=== PATIENT | female | born 1960 | race Asian ===

== ENCOUNTER 2018-11-15 17:16 | Emergency (ER) | payer BC ==
[2018-11-15 17:23] VITALS: BP 135/81; PULSE 131; BMI 24.1
[2018-11-15] MEDS ORDERED: SODIUM CHLORIDE 1,000 ML IV STA (17:23)
--- NOTE | 2018-11-15 17:23 | PDOC ---
Rapid Medical Evaluation Chief Complaint: Urinary Problem Time Seen by Provider: 11/15/18 17:21 Medical Evaluation: Allergies Allergy/AdvReac Type Severity Reaction Status Date / Time amoxicillin [Amoxicillin] Allergy Intermediate Verified 08/06/13 18:09 11/15/18 17:21 I have performed a brief in-person evaluation of this patient. The patient presents with a chief complaint of: suprapubic pain Pertinent physical exam findings: HR-136 -CVAT. Lower abd pain I have ordered the following: ekg, urine, labs The patient will proceed to the ED for further evaluation. Discharge Disposition - Diagnosis Lower abdominal pain - Referrals - Patient Instructions - Post Discharge Activity
--- NOTE | 2018-11-15 17:57 | PDOC ---
History of Present Illness - General Chief Complaint: Urinary Problem Stated Complaint: UTI Time Seen by Provider: 11/15/18 17:21 History Source: Patient Exam Limitations: No Limitations - History of Present Illness Initial Comments: 58 yo F PMH, HTN, HLD, diabetes not on insulin, sciatica, p/w "hard pain while urinating". She says that this episode occurred at 1500 today, and she saw that the urine was a pink color. She reports having R lower back pain about a month ago that felt like "gas was stuck there". She took Gas X and this resolved. She felt that same pain around 1500 while urinating but it is not longer present. She has minor twinges of this pain when she turns to lay on either side. She says she has not had any UTIs in the past and has never had any hospitalizations. She denies CP, SOB, abdominal pain, N/V, constipation/diarrhea, fevers/chills. 11/15/18 17:52 Past History - Past Medical History Allergies/Adverse Reactions: Allergies Allergy/AdvReac Type Severity Reaction Status Date / Time amoxicillin [Amoxicillin] Allergy Intermediate Verified 08/06/13 18:09 Home Medications: Ambulatory Orders Amlodipine Besylate [Norvasc -] 5 mg PO ASDIR 08/06/13 Losartan Potassium 50 mg PO ASDIR 08/06/13 Unobtainable Home Med List 0 dose .ROUTE UTDICT 08/06/13 traMADol HCL [Ultram] 50 mg PO Q6H PRN #14 tablet 08/06/13 Sulfamethoxazole/Trimethoprim [Bactrim Ds Tablet] 1 each PO BID #14 tablet 11/15 COPD: No Diabetes: Yes HTN: Yes Hypercholesterolemia: Yes - Suicide/Smoking/Psychosocial Hx Smoking History: Never smoked Hx Alcohol Use: No Drug/Substance Use Hx: No Review of Systems - Review of Systems Able to Perform ROS?: Yes Constitutional: No: Chills, Fever, Weakness HEENTM: No: Eye Pain, Recent change in vision, Double Vision, Ear Pain, Nose Pain, Throat Pain, Difficulty Swallowing Respiratory: No: Cough, Orthopnea, Shortness of Breath Cardiac (ROS): No: Chest Pain, Lightheadedness ABD/GI: No: Constipated, Diarrhea, Difficulty Swallowing, Nausea, Vomiting : Yes: Dysuria ("hard pain"), Flank Pain (intermittent on R side, not currently feeling), Hematuria. No: Discharge, Incontinence, Urgency Neurological: No: Headache, Numbness *Physical Exam - Vital Signs Last Vital Signs Temp Pulse Resp BP Pulse Ox 99.1 F 131 H 16 135/81 96 11/15/18 17:19 11/15/18 17:19 11/15/18 17:19 11/15/18 17:19 11/15/18 17:19 - Physical Exam General Appearance: Yes: Nourished, Appropriately Dressed. No: Apparent Distress HEENT: positive: EOMI, JARRELL, Normal ENT Inspection, Normal Voice, Symmetrical, Pharynx Normal Neck: positive: Trachea midline, Supple Respiratory/Chest: positive: Lungs Clear, Normal Breath Sounds. 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 Will get CBC EKG trops CMP UA/UC and give 1L fluids. 11/15/18 18:00 UA reviewed, 3+ blood, 2+ leuk esterase 11/15/18 19:20 CBC reviewed, WBC 13 11/15/18 20:14 *DC/Admit/Observation/Transfer Diagnosis at time of Disposition: UTI (urinary tract infection) - Discharge Dispostion Disposition: HOME Condition at time of disposition: Improved Decision to Admit order: No - Prescriptions Prescriptions: Sulfamethoxazole/Trimethoprim [Bactrim Ds Tablet] 1 each PO BID #14 tablet - Referrals Referrals: Rajesh Siegel MD [Primary Care Provider] - - Patient Instructions Printed Discharge Instructions: DI for Urinary Tract Infection (UTI) Additional Instructions: You were found to have a urinary tract infection (UTI). Please take the Bactrim as prescribed. Please follow up with your primary care doctor. Please return to the ED if you still have a fever after two days of antibiotics, or if you develop abdominal pain. - Post Discharge Activity
[2018-11-15] MEDS ORDERED: LACTATED RINGERS SOLUTION 1,000 ML/1,000 ML INFUS.BAG IV SCH (18:15)
[2018-11-15 19:15] LABS: PH,URINE 6.5 (5.0-8.0); URINE APPEARANCE CLEAR; URINE BILIRUBIN NEGATIVE (NEGATIVE); URINE COLOR YELLOW; URINE GLUCOSE (UA) NEGATIVE (NEGATIVE); URINE KETONE NEGATIVE (NEGATIVE); URINE LEUK ESTERASE 2+ (NEGATIVE); URINE NITRITE NEGATIVE (NEGATIVE); URINE PROTEIN NEGATIVE (NEGATIVE); URINE UROBILINOGEN 0.2 mg/dL (0.2-1.0)
[2018-11-15 19:46] LABS: BASO % 0.9 % (0-2.0); HEMATOCRIT 34.8 % (32.4-45.2); HEMOGLOBIN 11.8 GM/dL (10.7-15.3); LYMPH % 10.1 % (8-40); MCH 27.8 pg (25.7-33.7); MEAN CELL VOLUME 81.7 fl (80-96); MEAN PLT VOLUME 7.7 fl (7.5-11.1); MONO % 6.4 % (3.8-10.2); NEUT % 81.6 % (42.8-82.8); PLATELET COUNT 352 K/MM3 (134-434); RBC 4.26 M/mm3 (3.60-5.2); RDW 14.8 % (11.6-15.6)
[2018-11-15 19:56] LABS: VENOUS PC02 49.2 mmHg (41-51); VENOUS PH 7.39 (7.31-7.41)
[2018-11-15 19:58] LABS: VENOUS PO2 29.6 mmHg (30-40)
[2018-11-15 20:17] LABS: ALBUMIN 3.8 g/dl (3.4-5.0); ALK PHOS 80 U/L (45-117); ANION GAP 4 MMOL/L (8-16); BILIRUBIN,TOTAL 0.4 mg/dL (0.2-1); BLOOD UREA NITROGEN 9.9 mg/dL (7-18); CHLORIDE 104 mmol/L (98-107); CO2 30 mmol/L (21-32); CREATININE 0.7 mg/dL (0.55-1.3); GLUCOSE,RANDOM 107 mg/dL (74-106); POTASSIUM 3.8 mmol/L (3.5-5.1); SGOT/AST 21 U/L (15-37); SGPT/ALT 45 U/L (13-61); SODIUM 138 mmol/L (136-145); TOT PROT 7.3 g/dl (6.4-8.2)
[2018-11-15 20:31] LABS: URINE RBC 6 /hpf (0-4); URINE WBC 44 /hpf (0-5)
[2018-11-15 20:32] LABS: EPI CELLS FEW /HPF (0-5/HPF); HYALINE CASTS 1 /lpf (0-8); URINE BACTERIA 43 /hpf (NEGATIVE); URINE CRYSTALS 0 /hpf; YEAST 0 (NEGATIVE)
[2018-11-15] MEDS ORDERED: CEFTRIAXONE 1 GM in DEXTROSE 5%-WATER - 100 ML IVPB ONE (20:36)
[2018-11-15] MEDS ORDERED: CEFTRIAXONE 1 GM/50 ML BAG ONE (21:10)
[2018-11-15 21:20] LABS: ACETONE SERUM NEGATIVE (NEGATIVE)
--- NOTE | 2018-11-15 22:00 | PDOC ---
Documentation entered by Chandana Mares SCRIBE, acting as scribe for Flor Friend MD. Flor Friend MD: This documentation has been prepared by the Vishnu ibarra Xhesika, SCRIBE, under my direction and personally reviewed by me in its entirety. I confirm that the documentation accurately reflects all work, treatment, procedures, and medical decision making performed by me. Attending Attestation - Resident Resident Name: Trav Kruger - [facility] HPI: 11/15/18 18:20 The patient is a 58 year old female with a significant medical history of HTN, HLD, diabetes (not on insulin), and sciatica who present to the ED with 3 hours of dysuria and hematuria. The patient notes she was straining while trying to urinate when she felt a hard pain, looked and saw that her urine was a pink color. The patient states she has been endorsing 1 month of intermittent back pain that feels like gas was stuck there, took Gas X while relief of symptoms. The patient states her back pain is worsened with turning. The patient denies chest pain, shortness of breath, headache and dizziness. Denies fever, chills, nausea, vomiting, diarrhea and constipation. Denies frequency, urgency. Allergies: Amoxicillin PCP: Rajesh Easley - Physicial Exam PE: 11/15/18 19:06 GENERAL: Awake, alert, and fully oriented, in no acute distress HEAD: No signs of trauma EYES: PERRLA, EOMI, sclera anicteric, conjunctiva clear ENT: Auricles normal inspection, hearing grossly normal, nares patent, oropharynx clear without exudates. Moist mucosa NECK: Normal ROM, supple, no lymphadenopathy, JVD, or masses LUNGS: Breath sounds equal, clear to auscultation bilaterally. No wheezes, and no crackles HEART: Regular rate and rhythm, normal S1 and S2, no murmurs, rubs or gallops ABDOMEN: Soft, nontender, normoactive bowel sounds. No guarding, no rebound. No masses EXTREMITIES: Normal range of motion, no edema. No clubbing or cyanosis. No cords, erythema, or tenderness NEUROLOGICAL: Cranial nerves II through XII grossly intact. Normal speech, normal gait SKIN: Warm, Dry, normal turgor, no rashes or lesions noted. - Medical Decision Making 11/15/18 21:57 Pt presents to the ED complaining of dysuria and subjective fever consistent with urinary tract infection. Now is pain free, with no abdominal tenderness. Labs and UA indicate pyelonephritis. HR improved after IV hydration, now in 90s. will treat with bactrim, discharge home with instructions to return to the ED for worsening symptoms.
[2018-11-15 23:15] VITALS: TEMP 99.5
--- NOTE | 2018-11-16 16:10 | EKG ---
Test Reason : Blood Pressure : / mmHG Vent. Rate : 126 BPM Atrial Rate : 126 BPM P-R Int : 144 ms QRS Dur : 072 ms QT Int : 306 ms P-R-T Axes : 054 -15 049 degrees QTc Int : 443 ms SINUS TACHYCARDIA POSSIBLE LEFT ATRIAL ENLARGEMENT BORDERLINE ECG NO PREVIOUS ECGS AVAILABLE Confirmed by ARIAN PERRY, TABATHA ([id number]) on 11/16/2018 4:10:11 PM Referred By: Confirmed By:TABATHA DON MD
== END 2018-11-15 22:00 | disposition home or self-care (01) ==
LOC: JER 17:16
PROC: 3E0337Z Introduction of Electrolytic and Water Balance Substance into Peripheral Vein, Percutaneous Approach (ICD-10-PCS; principal; 2018-11-15)
PROC: 3E03329 Introduction of Other Anti-infective into Peripheral Vein, Percutaneous Approach (ICD-10-PCS; 2018-11-15)
DX: N39.0 Urinary tract infection, site not specified (principal); R31.9 Hematuria, unspecified; I10 Essential (primary) hypertension; E78.5 Hyperlipidemia, unspecified; E11.9 Type 2 diabetes mellitus without complications
CPT/HCPCS: 36415; 80053; 81003; 82009; 82550; 82553; 82803; 83605; 84484; 85025; 87077; 87086; 87186; 93005; 93010; 99282-25; J7030

== ENCOUNTER 2020-06-08 10:04 | Emergency (ER) | payer BC ==
[2020-06-08 10:07] VITALS: TEMP 97.2; BMI 23.8
[2020-06-08] MEDS ORDERED: MAG HYDROX/AL HYDROX/SIMETH 30 ML UNIT-DOSE CUP PO ONE (10:41)
[2020-06-08] MEDS ORDERED: ACETAMINOPHEN 500 MG TABLET (FP) PO ONE (10:41)
[2020-06-08] MEDS ORDERED: FAMOTIDINE 20 MG/50 ML IVPB 20 MG/50 ML MG IVPB ONE ×2 (10:41→10:52)
[2020-06-08] MEDS ORDERED: MAG HYDROX/AL HYDROX/SIMETH 30 ML UNIT-DOSE CUP ONE (10:51)
[2020-06-08] MEDS ORDERED: ACETAMINOPHEN 325 MG TABLET (FP) ONE (10:51)
[2020-06-08 11:06] LABS: BASO % 0.5 % (0-2.0); EOS % 2.2 % (0-4.5); HEMATOCRIT 35.2 % (32.4-45.2); HEMOGLOBIN 11.9 GM/dL (10.7-15.3); LYMPH % 23.1 % (8-40); MCH 27.8 pg (25.7-33.7); MCHC 33.7 g/dl (32.0-36.0); MEAN CELL VOLUME 82.6 fl (80-96); MEAN PLT VOLUME 7.7 fl (7.5-11.1); MONO % 8.1 % (3.8-10.2); NEUT % 66.1 % (42.8-82.8); PLATELET COUNT 303 K/MM3 (134-434); RBC 4.26 M/mm3 (3.60-5.2); WHITE BLOOD COUNT 6.5 K/mm3 (4.0-10.0)
[2020-06-08 11:12] LABS: INR 0.98 (0.83-1.09); PROTHROMBIN TIME (PATIENT) 11.9 SEC (9.7-13.0)
[2020-06-08 11:15] LABS: ACTIVATED PTT 31.6 SECONDS (25.2-36.5)
[2020-06-08 11:27] LABS: CHLORIDE 105 mmol/L (98-107); POTASSIUM 3.7 mmol/L (3.5-5.1); SODIUM 138 mmol/L (136-145)
[2020-06-08 11:29] LABS: ANION GAP 5 MMOL/L (8-16); CALCIUM 8.9 mg/dL (8.5-10.1); CO2 28 mmol/L (21-32); GLUCOSE,RANDOM 136 mg/dL (74-106); LIPASE 97 U/L (73-393)
[2020-06-08 11:30] LABS: ALBUMIN 3.6 g/dl (3.4-5.0); BLOOD UREA NITROGEN 10.6 mg/dL (7-18)
[2020-06-08 11:31] LABS: CREATININE 0.5 mg/dL (0.55-1.3)
[2020-06-08 11:34] LABS: BILIRUBIN,TOTAL 0.2 mg/dL (0.2-1); TOT PROT 7.3 g/dl (6.4-8.2)
[2020-06-08 11:35] LABS: ALK PHOS 77 U/L (45-117)
[2020-06-08 12:01] LABS: SGOT/AST 27 U/L (15-37); SGPT/ALT 48 U/L (13-61)
[2020-06-08 13:54] VITALS: BP 140/76; PULSE 99
== END 2020-06-08 13:54 | disposition home or self-care (01) ==
LOC: JER 10:04
PROC: 3E033GC Introduction of Other Therapeutic Substance into Peripheral Vein, Percutaneous Approach (ICD-10-PCS; principal; 2020-06-08)
DX: S22.080A Wedge compression fracture of T11-T12 vertebra, initial encounter for closed fracture (principal)
CPT/HCPCS: 36415; 71046-TC-FY; 71275-TC; 74174-TC; 80053; 82550; 82553; 83690; 83735; 84484; 85025; 85610; 85730; 93005; 93010; 99285-25; Q9967